=== PATIENT | male | born 1970 | race Hispanic/Latino ===

== ENCOUNTER 2018-10-20 10:33 | Emergency (ER) | payer OTHER ==
[2018-10-20 10:46] VITALS: RESP 18; O2SAT 98
[2018-10-20] MEDS ORDERED: Lidocaine Hydrochloride 5 ML INJ ONE (10:48)
[2018-10-20] MEDS ORDERED: Tdap Vaccine 0.5 ml Vial (10-64 yrs) IM ONE ×2 (10:48→10:54)
[2018-10-20] MEDS ORDERED: Bacitracin 500 Units/gm Oint Foilpak UD ONE (11:37)
--- NOTE | 2018-10-20 11:43 | C.PDOC ---
History Of Present Illness 48 year old male presents to the ED for evaluation after he sustained a laceration to the kingsley aspect of his left thumb around 30 minutes prior to arrival. Patient states he was cutting with a buzz saw when he accidentally injured the area. Patient states he is right-hand dominant and is not up-to-date with Tetanus immunization. He denies neurovascular changes to the area. Time Seen by Provider: 10/20/18 10:47 Chief Complaint (Nursing): Upper Extremity Problem/Injury History Per: Patient History/Exam Limitations: no limitations Onset/Duration Of Symptoms: Mins (30) Current Symptoms Are (Timing): Still Present Quality: "Pain" Additional History Per: Patient Past Medical History Reviewed: Historical Data, Nursing Documentation, Vital Signs Vital Signs: Last Vital Signs Temp 98.5 F 10/20/18 10:44 Pulse 90 10/20/18 10:44 Resp 18 10/20/18 10:44 BP 150/85 10/20/18 10:44 Pulse Ox 98 10/20/18 10:44 - Medical History PMH: No Chronic Diseases Surgical History: No Surg Hx Family History: States: Unknown Family Hx - Social History Hx Alcohol Use: No Hx Substance Use: No - Immunization History Hx Tetanus Toxoid Vaccination: No Hx Influenza Vaccination: No Hx Pneumococcal Vaccination: No Review Of Systems Skin: Positive for: Other (laceration to kingsley aspect of left thumb ) Neurological: Negative for: Weakness, Numbness Physical Exam - Physical Exam Appears: Well, Non-toxic, No Acute Distress Skin: Normal Color, Other (4cm laceration to kingsley aspect of left thumb. no involvement of nailbed. Good n/v status distally) Head: Atraumatic, Normacephalic Eye(s): bilateral: Normal Inspection, PERRL, EOMI Nose: Normal Oral Mucosa: Moist Tongue: Normal Appearing Teeth: Normal Dentition Gingiva: Normal Appearing Throat: Normal, No Erythema, No Exudate Neck: Normal, Normal ROM Chest: Symmetrical, No Deformity Cardiovascular: Rhythm Regular Respiratory: Normal Breath Sounds Back: Normal Inspection, No CVA Tenderness Extremity: Normal ROM, Deformity (LUE laceration to L thumb. N/V intact distal and proximal. ) Extremity: Right: Atraumatic, Bilateral: Hips Non-Tender Neurological/Psych: Oriented x3, Normal Speech, Normal Cognition, Normal Sensation ED Course And Treatment O2 Sat by Pulse Oximetry: 98 (on RA) Pulse Ox Interpretation: Normal Laceration - Laceration Repair left thumb Wound Length (In cm): 4 Anesthesia: Lidocaine 1% Wound Examination: Irrigated With Saline, No FB With Wound Exploration, No Tendon Injury With Wound Exploration Wound Closure: Suture (8) Suture Technique And Material Used: Nylon (Ethilon and Prolene ) Wound Complexity: Simple Medical Decision Making Medical Decision Making: Impression: 48 year old male with thumb laceration. N/V intact. not UTD w/ tetanus. Will close wound and give ppx abx. Pt agreeable to plan. Plan: * Tylenol PO * Tetanus IM * laceration repair * reassess and disposition Progress: Tylenol PO and Tetanus immunization administered. Laceration Repair: 4cm superficial laceration to the kingsley aspect of left thumb. Local anesthesia achieved with 1% lidocaine without epinephrine. Wound irrigated with normal saline and explored. No foreign body visualized. Eight 4-0 Prolene and Ethilon sutures placed. Patient tolerated well with good hemostasis. On reassessment, patient is resting comfortably, showing no signs of distress and is stable for discharge. Patient will be given prescription for antibiotics and advised to return to the ED or follow up with PMD within 7-10 days for suture removal. Disposition - Disposition Referrals: [facility] [Outside] [facility] [Outside] [facility] [Outside] Disposition: HOME/ ROUTINE Disposition Time: 11:45 Condition: GOOD Additional Instructions: Return in 7-10 days or see your primary care doctor for suture removal. CHARIS NUNEZ, thank you for letting us take care of you today. Your provider was Rolando Contreras and you were treated for LEFT THUMB laceration. The emergency medical care you received today was directed at your acute symptoms. If you were prescribed any medication, please fill it and take as directed. It may take several days for your symptoms to resolve. Return to the Emergency Department if your symptoms worsen, do not improve, or if you have any other problems. Please contact your doctor or call one of the physicians/clinics you have been referred to that are listed on the Patient Visit Information form that is included in your discharge packet. Bring any paperwork you were given at discharge with you along with any medications you are taking to your follow up visit. Our treatment cannot replace ongoing medical care by a primary care provider outside of the emergency department. Thank you for allowing the [facility] team to be part of your care today. If you had an X-Ray or CT scan: A Radiologist will review the ED reading if any change in treatment is needed we will contact you. If you had a blood, urine, or wound culture: It will take several days for the results, if any change in treatment is needed we will contact you. If you had an STI test: It will take 48 hours for the results. Please call after 1 week if you have not heard back. Prescriptions: Cephalexin [Keflex] 250 mg PO Q6 5 Days #20 capsule Instructions: Laceration Repair, Laceration Repair With Stitches (DC) Forms: [employer] (Gambian) - Clinical Impression Clinical Impression: Laceration of hand - Scribe Statement The provider has reviewed the documentation as recorded by the Scribe (Analy Davis) Provider Attestation: All medical record entries made by the Scribe were at my direction and personally dictated by me. I have reviewed the chart and agree that the record accurately reflects my personal performance of the history, physical exam, medical decision making, and the department course for this patient. I have also personally directed, reviewed, and agree with the discharge instructions and disposition.
--- NOTE | 2018-10-20 11:45 | C.PDOC ---
Time Seen by Provider: 10/20/18 10:47 Chief Complaint (Nursing): Upper Extremity Problem/Injury Past Medical History Vital Signs: Last Vital Signs Temp 98.5 F 10/20/18 10:44 Pulse 90 10/20/18 10:44 Resp 18 10/20/18 10:44 BP 150/85 10/20/18 10:44 Pulse Ox 98 10/20/18 10:44 - Social History Hx Alcohol Use: No Hx Substance Use: No - Immunization History Hx Tetanus Toxoid Vaccination: No Hx Influenza Vaccination: No Hx Pneumococcal Vaccination: No ED Course And Treatment O2 Sat by Pulse Oximetry: 98 Disposition - Disposition Disposition Time: 11:45 Condition: GOOD - Clinical Impression Clinical Impression: Laceration of hand
[2018-10-20 11:54] VITALS: BP 129/90; PULSE 72; TEMP 98.8
== END 2018-10-20 11:59 | disposition home or self-care (01) ==
LOC: C.ER 10:33
DX: S61.012A Laceration without foreign body of left thumb without damage to nail, initial encounter (principal); W45.8XXA Other foreign body or object entering through skin, initial encounter

== ENCOUNTER 2018-10-30 10:07 | Emergency (ER) | payer OTHER ==
[2018-10-30 10:15] VITALS: BP 121/77; PULSE 63; RESP 16; TEMP 98.3; O2SAT 98
--- NOTE | 2018-10-30 11:08 | C.PDOC ---
History Of Present Illness 48 year old male presents to the ED for a wound check. Patient was evaluated in the ED on 10/20 after he sustained a laceration to his left thumb. Patient had eight sutures placed and was given wound care and follow up instructions. Patient denies fever, chills, discharge. Time Seen by Provider: 10/30/18 10:18 Chief Complaint (Nursing): Suture/Staple Removal History Per: Patient History/Exam Limitations: no limitations Onset/Duration Of Symptoms: Days Ago Current Symptoms Are (Timing): Better Location Of Injury: Left: Hand (thumb ) Quality Of Symptoms: denies: Painful, Itching, Swollen, Draining Additional History Per: Patient Past Medical History Reviewed: Historical Data, Nursing Documentation, Vital Signs Vital Signs: Last Vital Signs Temp 98.3 F 10/30/18 10:13 Pulse 63 10/30/18 10:13 Resp 16 10/30/18 10:13 BP 121/77 10/30/18 10:13 Pulse Ox 98 10/30/18 10:13 - Medical History PMH: No Chronic Diseases Surgical History: No Surg Hx Family History: States: Unknown Family Hx - Social History Hx Alcohol Use: No Hx Substance Use: No - Immunization History Hx Tetanus Toxoid Vaccination: No Hx Influenza Vaccination: No Hx Pneumococcal Vaccination: No Review Of Systems Skin: Positive for: Other (wound check/suture removal ) Physical Exam - Physical Exam Appears: Non-toxic, No Acute Distress Skin: Normal Color, Warm, Dry, Other (kingsley aspect of left thumb: eight sutures intact) Extremity: Normal ROM Neurological/Psych: Oriented x3, Normal Speech, Normal Cognition ED Course And Treatment O2 Sat by Pulse Oximetry: 98 (on RA) Pulse Ox Interpretation: Normal Progress Note: Five sutures removed. Patient noted to have mild dehiscence between sutures. Three sutures were left in place. Steri-Strip was applied over the area of the dehiscence. Area was dressed in clean, sterile dressing. On re- assessment, patient is resting comfortably, showing no signs of distress, and stable for discharge. He is given proper wound care instructions and advised to return to the ED in 48 hours for a wound check and removal of the remaining stick sutures. Disposition Counseled Patient/Family Regarding: Diagnosis, Need For Followup - Disposition Referrals: [facility] at [facility] [Outside] Disposition: HOME/ ROUTINE Disposition Time: 11:05 Condition: STABLE Additional Instructions: RETURN TO ER IN 48 HOURS FOR WOUND CHECK, REMOVAL OF REMAINING SUTURES Instructions: Stitches Removal Forms: [employer] (Arabic) Print Language: AZERBAIJANI - POA Present On Arrival: None - Clinical Impression Clinical Impression: Removal of suture - Scribe Statement The provider has reviewed the documentation as recorded by the Scribe (Analy Davis) Provider Attestation: All medical record entries made by the Scribe were at my direction and personally dictated by me. I have reviewed the chart and agree that the record accurately reflects my personal performance of the history, physical exam, medical decision making, and the department course for this patient. I have also personally directed, reviewed, and agree with the discharge instructions and disposition.
== END 2018-10-30 11:29 | disposition home or self-care (01) ==
LOC: C.ER 10:07
DX: Z48.02 Encounter for removal of sutures (principal)

== ENCOUNTER 2018-11-01 10:55 | Emergency (ER) | payer BC, OTHER ==
[2018-11-01 11:02] VITALS: BP 116/77; PULSE 641; RESP 8; TEMP 98.1; O2SAT 99
--- NOTE | 2018-11-01 11:24 | C.PDOC ---
History Of Present Illness 48 y/o male presents to the ED for suture removal of left thumb, placed 13 days ago. Patient was seen here 2 days ago and had some of the sutures removed, instructed to come back today for the remainder to be removed. Patient is right hand dominant. He states the incident occurred while using a table saw. Patient was on a course of Keflex, which he completed. He notes the area is still swollen, but has no drainage. Denies any fever or chills. Time Seen by Provider: 11/01/18 11:03 Chief Complaint (Nursing): Suture/Staple Removal History Per: Patient History/Exam Limitations: no limitations Onset/Duration Of Symptoms: Days Ago (13) Current Symptoms Are (Timing): Better Past Medical History Reviewed: Historical Data, Nursing Documentation, Vital Signs Vital Signs: Last Vital Signs Temp 98.1 F 11/01/18 10:59 Pulse 641 H 11/01/18 10:59 Resp 8 L 11/01/18 10:59 BP 116/77 11/01/18 10:59 Pulse Ox 99 11/01/18 10:59 - Medical History PMH: No Chronic Diseases Surgical History: No Surg Hx Family History: States: Unknown Family Hx - Social History Hx Alcohol Use: No Hx Substance Use: No - Immunization History Hx Tetanus Toxoid Vaccination: Yes Hx Influenza Vaccination: No Hx Pneumococcal Vaccination: No Review Of Systems Except As Marked, All Systems Reviewed And Found Negative. Constitutional: Negative for: Fever, Chills Skin: Positive for: Other (Sutured wound) Neurological: Negative for: Weakness, Numbness Physical Exam - Physical Exam Appears: Well, Non-toxic, No Acute Distress Skin: Warm, Other (Slight swelling and tenderness to the left distal 1st phalanx, at volar aspect, with granulation tissue in place, no gross erythema) Pulses: Left Radial: Normal, Right Radial: Normal Neurological/Psych: Oriented x3, Normal Motor, Normal Sensation, Other (No focal deficits) Gait: Steady ED Course And Treatment O2 Sat by Pulse Oximetry: 99 (RA) Pulse Ox Interpretation: Normal Medical Decision Making Medical Decision Making: Impression: Suture Removal Plan: 3 sutures removed by me, without difficulty. Wound cleaned and dressed in the ER. Will place patient back on Keflex. Advised to follow up for wound check with PMD in 2 days. Disposition Counseled Patient/Family Regarding: Studies Performed, Diagnosis, Need For Followup, Rx Given - Disposition Referrals: [facility] at [facility] [Outside] Disposition: HOME/ ROUTINE Disposition Time: 11:22 Condition: STABLE Additional Instructions: follow up with your doctor within 2 days call to make an appointment take medications as prescribed return to ER if symptoms worsens or progress Prescriptions: Cephalexin [Keflex] 500 mg PO QID #28 capsule Instructions: Stitches Removal Forms: [facility] [employer] (Central African), General Discharge Instructions - Clinical Impression Clinical Impression: Removal of suture - Scribe Statement The provider has reviewed the documentation as recorded by the Renetta Edwards Provider Attestation: All medical record entries made by the Renetta were at my direction and personally dictated by me. I have reviewed the chart and agree that the record accurately reflects my personal performance of the history, physical exam, medical decision making, and the department course for this patient. I have also personally directed, reviewed, and agree with the discharge instructions and disposition.
== END 2018-11-01 11:50 | disposition home or self-care (01) ==
LOC: C.ER 10:55
DX: Z48.02 Encounter for removal of sutures (principal)